=== PATIENT | female | born 1980 | race Caucasian/White ===

== ENCOUNTER 2021-03-22 06:36 | Day surgery (SDC) | payer BC, SELFPAY ==
[~2021-03-22] VITALS: Ht 172.7 cm; Wt 63.5 kg
[2021-03-22 07:11] LABS: HCG,QUAL RESULT NEGATIVE (NEGATIVE)
[2021-03-22] MEDS ORDERED: ACETAMINOPHEN I.V. 1000 MG 100 ML IV ONE (07:12)
[2021-03-22] MEDS ORDERED: KETOROLAC TROMETHAMINE 30 MG VIAL IVP PRN (09:45)
[2021-03-22] MEDS ORDERED: ONDANSETRON HCL 4 MG/2 ML VIAL IVP PRN (09:45)
[2021-03-22] MEDS ORDERED: HYDROmorphone 1 MG/ML INJ. CARTRIDGE IVP PRN (09:45)
[2021-03-22] MEDS ORDERED: NS 1000 ML IV.SOLN IV ONE (10:16)
[2021-03-22] MEDS ORDERED: SUCCINYLCHOLINE CHLORIDE 20 MG/ML(QUELICIN) ONE (10:16)
[2021-03-22] MEDS ORDERED: WATER FOR IRRIGATION,STERILE 1,000 ML IRRIG.SOLN IR ONE (10:16)
[2021-03-22] MEDS ORDERED: PROPOFOL 200MG/ 20ML VIAL (DIPRIVAN) IV ONE (10:16)
[2021-03-22] MEDS ORDERED: ONDANSETRON HCL 4 MG/2 ML VIAL ONE (10:16)
[2021-03-22] MEDS ORDERED: NS IRRIG SOLN 1000 ML IR ONE (10:16)
[2021-03-22] MEDS ORDERED: SEVOFLURANE 15 MIN GAS INH ONE (10:16)
[2021-03-22] MEDS ORDERED: BACITRACIN 1 GM OINT TP ONE (10:16)
[2021-03-22] MEDS ORDERED: LR 1,000 ML IV.SOLN IV ONE (10:16)
[2021-03-22] MEDS ORDERED: fentaNYL CITRATE 250 MCG/5 ML AMP ONE (10:16)
[2021-03-22] MEDS ORDERED: EPINEPHrine 1 MG/ML VIAL ONE (10:16)
[2021-03-22] MEDS ORDERED: ROCURONIUM BROMIDE 10 MG/ML (ZEMURON) ONE (10:16)
[2021-03-22] MEDS ORDERED: LIDOCAINE/EPI 1% 1:100000 20 ML VIAL INJ ONE (10:16)
[2021-03-22 15:34] VITALS: BP_SYST 113
== END 2021-03-22 13:25 | disposition home or self-care (01) ==
LOC: SDS 06:36 → SMU 06:37 → EDBD 07:30 → SDS 13:25
PROVIDERS: ATTEND Otolaryngology
DX: J34.89 Other specified disorders of nose and nasal sinuses (principal); D38.5 Neoplasm of uncertain behavior of other respiratory organs; J34.2 Deviated nasal septum; J45.909 Unspecified asthma, uncomplicated; G40.909 Epilepsy, unspecified, not intractable, without status epilepticus; F41.9 Anxiety disorder, unspecified; K51.90 Ulcerative colitis, unspecified, without complications; Z79.899 Other long term (current) drug therapy; Z20.822 Contact with and (suspected) exposure to COVID-19
CPT/HCPCS: 30140; 30520; 31255; 31256; 31296; 36415; 84703; 87426; 88305; 88311; C1726; J0131; J0171; J0330; J2405; J2704; J3010; J7030; J7120; U0003